=== PATIENT | female | born 1955 | race Caucasian/White ===

== ENCOUNTER 2024-11-27 15:18 | Emergency (ER) | payer MEDICARE | END 2024-11-27 17:05 | disposition home or self-care (01) | LOC: JP.ED 15:18 | DX: S06.0XAA Concussion with loss of consciousness status unknown, initial encounter (principal); Z88.8 Allergy status to other drugs, medicaments and biological substances; Z79.899 Other long term (current) drug therapy; X58.XXXA Exposure to other specified factors, initial encounter | CPT/HCPCS: 71046; 72100; 99283; 99284; A9270 ==